=== PATIENT | male | born 1955 ===

== ENCOUNTER → 2021-06-17 11:43 | Outpatient (CLI) | payer MEDICARE, OTHER, SELFPAY ==
[2021-06-17 19:40] LABS: Add Manual Diff / Slide Review NO; Basophils Absolute Auto 100 /uL (0-100); Basophils Percent Auto 0.8 % (0-2); Eosinophils Absolute Auto 200 /uL (0-450); Eosinophils Percent Auto 2.9 % (2-4); Hemoglobin 12.7 g/dL (13.5-17.5); Lymphocytes Absolute Auto 1200 /uL (1100-4500); Lymphocytes Percent Auto 19.3 % (25-40); Mean Corpuscular HGB Conc 33.6 % (30-36); Mean Corpuscular Hemoglobin 29.5 PG (26-34); Monocytes Absolute Auto 900 /uL (0-900); Monocytes Percent Auto 14.3 % (3-14); Neutrophils Absolute Auto 4000 /uL (1500-7000); Neutrophils Percent Auto 62.7 % (50-75); Platelet Count 186 X10^3/uL (150-400); Red Blood Cell Count 4.31 X10^6/uL (4.5-5.9); Red Cell Distribution Width 13.9 % (11.6-14.8); White Blood Cell Count 6.4 X10^3/uL (4.5-11.0)
== END ==
PROVIDERS: PCP Physician Assistant; Visit Provider Physician Assistant
DX: R10.31 Right lower quadrant pain (principal); M10.9 Gout, unspecified
CPT/HCPCS: 84550; 85025

== ENCOUNTER → 2022-05-25 13:22 | Outpatient (CLI) | payer MEDICARE, OTHER, SELFPAY ==
[2022-05-25 18:51] LABS: Hematocrit 41.1 % (41-53); Hemoglobin 13.8 g/dL (13.5-17.5); Mean Corpuscular HGB Conc 33.7 % (30-36); Mean Corpuscular Hemoglobin 29.8 PG (26-34); Mean Corpuscular Volume 88.6 fL (80-100); Platelet Count 186 X10^3/uL (150-400); Red Blood Cell Count 4.64 X10^6/uL (4.5-5.9); Red Cell Distribution Width 13.8 % (11.6-14.8); White Blood Cell Count 4.8 X10^3/uL (4.5-11.0)
[2022-05-25 18:52] LABS: HEMOLYSIS < 15 (0-50); Iron 113 ug/dL (49-181)
[2022-05-25 18:58] LABS: C-Reactive Protein Quant < 0.5 mg/dL (<1.0)
[2022-05-25 19:05] LABS: Percent Iron Saturation 36 % (20-50); Total Iron Binding Capacity 313 ug/dL (261-462); Transferrin 261 mg/dL (206-381)
[2022-05-25 19:28] LABS: Ferritin 85 ng/mL (18-464)
[2022-05-25 19:43] LABS: Erythrocyte Sedimentation Rate 2 MM/HR (0-15)
== END ==
PROVIDERS: Physician Assistant; PCP Family Medicine; Visit Provider Physician Assistant Medical
DX: M10.9 Gout, unspecified (principal); D31.32 Benign neoplasm of left choroid; M54.81 Occipital neuralgia; M79.2 Neuralgia and neuritis, unspecified; D64.9 Anemia, unspecified
CPT/HCPCS: 82728; 83540; 83550; 85027; 85651; 86140

== ENCOUNTER → 2022-07-26 09:40 | Outpatient (CLI) | payer MEDICARE, OTHER, SELFPAY ==
[2022-07-26 20:06] LABS: Blood Urea Nitrogen 17 mg/dL (9-20); Calcium 9.4 mg/dL (8.4-10.2); Carbon Dioxide 33 mmol/L (22-32); Chloride 97 mmol/L (98-107); Cholesterol 243 mg/dL (140-199); Estimated Glomerular Filt Rate > 60 mL/min (>60); Glucose 137 mg/dL (80-110); HDL Cholesterol 87 mg/dL (40-60); HEMOLYSIS < 15 (0-50); LDL Cholesterol Calculated 142 mg/dL (<100); Potassium 4.5 mmol/L (3.4-5.1); Sodium 137 mmol/L (137-145); Triglycerides 71 mg/dL (35-150); Uric Acid 6.3 mg/dL (3.5-8.5)
[2022-07-26 20:35] LABS: Prostate Specific Antigen Scrn 0.955 ng/mL (0.1-4.0)
[2022-07-26 20:54] LABS: Vitamin B12 427 pg/mL (239-931)
[2022-07-26 20:55] LABS: Hep C Virus Ab w/Reflex Quant NEGATIVE s/c (NEGATIVE)
== END ==
PROVIDERS: PCP Family Medicine; Visit Provider Family Medicine
DX: Z13.6 Encounter for screening for cardiovascular disorders (principal); Z12.5 Encounter for screening for malignant neoplasm of prostate; D64.9 Anemia, unspecified; M10.9 Gout, unspecified; M79.2 Neuralgia and neuritis, unspecified; Z11.59 Encounter for screening for other viral diseases; Z12.11 Encounter for screening for malignant neoplasm of colon; Z13.1 Encounter for screening for diabetes mellitus
CPT/HCPCS: 80048; 80061; 82607; 84550; 86803; G0103

== ENCOUNTER → 2022-08-11 14:10 | Outpatient (CLI) | payer MEDICARE, OTHER, SELFPAY | PROVIDERS: PCP Family Medicine; Visit Provider Family Medicine | DX: R73.03 Prediabetes (principal) | CPT/HCPCS: 83036 ==

== ENCOUNTER → 2022-12-30 13:59 | Outpatient (CLI) | payer MEDICARE, OTHER, SELFPAY ==
[2022-12-31 22:07] LABS: x Labcorp Estim. Avg Glu (eAG) 128 mg/dL (.); x Labcorp Hemoglobin A1c 6.1 % (4.8-5.6)
== END ==
PROVIDERS: PCP Family Medicine; Visit Provider Family Medicine
DX: R73.03 Prediabetes (principal)
CPT/HCPCS: 83036

== ENCOUNTER → 2023-05-31 08:36 | Outpatient (CLI) | payer MEDICARE, OTHER, SELFPAY ==
[2023-05-31 19:26] LABS: Hemoglobin A1C% w Est Avg Glu 6.6 % (4.0-6.0)
[2023-05-31 19:36] LABS: Alanine Aminotransferase 34 IU/L (<50); Albumin 4.2 g/dL (3.5-5.0); Albumin Globulin Ratio 1.6 (1.0-2.8); Alkaline Phosphatase 45 U/L (38-126); Aspartate Aminotransferase 34 IU/L (17-59); BUN Creatinine Ratio 22.4 (6-22); Bilirubin Total 0.8 mg/dL (0.2-1.3); Blood Urea Nitrogen 17 mg/dL (9-20); Calcium 9.5 mg/dL (8.4-10.2); Carbon Dioxide 32 mmol/L (22-32); Chloride 99 mmol/L (98-107); Cholesterol 163 mg/dL (140-199); Estimated Glomerular Filt Rate > 60 mL/min (>60); Globulin 2.7 g/dL (1.7-4.1); Glucose 145 mg/dL (80-110); HDL Cholesterol 80 mg/dL (40-60); HEMOLYSIS < 15 (0-50); LDL Cholesterol Calculated 73 mg/dL (<100); Potassium 4.5 mmol/L (3.4-5.1); Sodium 137 mmol/L (137-145); Total Protein 6.9 g/dL (6.3-8.2); Triglycerides 51 mg/dL (35-150)
[2023-05-31 19:44] LABS: Add Manual Diff / Slide Review NO; Basophils Absolute Auto 0 /uL (0-100); Basophils Percent Auto 0.9 % (0-2); Eosinophils Absolute Auto 200 /uL (0-450); Eosinophils Percent Auto 2.9 % (2-4); Hematocrit 40.4 % (41-53); Hemoglobin 13.5 g/dL (13.5-17.5); Lymphocytes Absolute Auto 1100 /uL (1100-4500); Mean Corpuscular HGB Conc 33.5 % (30-36); Mean Corpuscular Hemoglobin 29.7 PG (26-34); Mean Corpuscular Volume 88.6 fL (80-100); Monocytes Absolute Auto 600 /uL (0-900); Monocytes Percent Auto 12.4 % (3-14); Neutrophils Absolute Auto 3300 /uL (1500-7000); Neutrophils Percent Auto 62.8 % (50-75); Platelet Count 167 X10^3/uL (150-400); Red Blood Cell Count 4.56 X10^6/uL (4.5-5.9); Red Cell Distribution Width 14.5 % (11.6-14.8); White Blood Cell Count 5.2 X10^3/uL (4.5-11.0)
[2023-05-31 19:59] LABS: Prostate Specific Antigen Scrn 0.942 ng/mL (0.1-4.0)
[2023-05-31 20:26] LABS: Creatinine Urine Random 65.5 mg/dL
[2023-05-31 20:31] LABS: Microalbumi Creatinin Ratio Ur 12.2 ug/mg CR (<30); Microalbumin Urine Random 0.8 mg/dL (0-1.6)
== END ==
PROVIDERS: PCP Family Medicine; Visit Provider Family Medicine
DX: Z12.5 Encounter for screening for malignant neoplasm of prostate (principal); E78.2 Mixed hyperlipidemia; I10 Essential (primary) hypertension; R73.03 Prediabetes; M10.9 Gout, unspecified; N52.9 Male erectile dysfunction, unspecified
CPT/HCPCS: 80053; 80061; 82043; 82570; 83036; 85025; G0103

== ENCOUNTER → 2024-04-02 08:16 | Outpatient (CLI) | payer MEDICARE, OTHER, SELFPAY ==
[2024-04-02 18:55] LABS: Cholesterol 175 mg/dL (140-199); Glucose 147 mg/dL (80-110); HDL Cholesterol 88 mg/dL (40-60); LDL Cholesterol Calculated 79 mg/dL (<100); Triglycerides 39 mg/dL (35-150)
[2024-04-02 19:26] LABS: Prostate Specific Antigen Scrn 0.897 ng/mL (0.1-4.0)
[2024-04-02 19:40] LABS: Hep C Virus Ab w/Reflex Quant NEGATIVE s/c (NEGATIVE)
== END ==
PROVIDERS: PCP Family Medicine; Referring Provider Family Medicine; Visit Provider Family Medicine
DX: Z13.1 Encounter for screening for diabetes mellitus (principal); E78.2 Mixed hyperlipidemia; Z12.5 Encounter for screening for malignant neoplasm of prostate; Z12.11 Encounter for screening for malignant neoplasm of colon; Z11.59 Encounter for screening for other viral diseases; Z13.220 Encounter for screening for lipoid disorders
CPT/HCPCS: 80061; 82947; 86803; G0103

== ENCOUNTER → 2024-04-09 13:24 | Outpatient (CLI) | payer MEDICARE, OTHER, SELFPAY ==
[2024-04-09 19:37] LABS: Hemoglobin A1C% w Est Avg Glu 6.4 % (4.0-6.0)
== END ==
PROVIDERS: PCP Family Medicine; Visit Provider Family Medicine
DX: E11.9 Type 2 diabetes mellitus without complications (principal)
CPT/HCPCS: 83036

== ENCOUNTER → 2024-08-29 10:31 | Outpatient (CLI) | payer MEDICARE, OTHER, SELFPAY ==
[2024-08-29 19:29] LABS: Add Manual Diff / Slide Review NO; Basophils Absolute Auto 100 /uL (0-100); Basophils Percent Auto 1.3 % (0-2); Eosinophils Absolute Auto 100 /uL (0-450); Eosinophils Percent Auto 2.9 % (2-4); Hematocrit 40.7 % (41-53); Hemoglobin 13.7 g/dL (13.5-17.5); Lymphocytes Absolute Auto 1400 /uL (1100-4500); Mean Corpuscular HGB Conc 33.7 % (30-36); Mean Corpuscular Hemoglobin 29.4 PG (26-34); Mean Corpuscular Volume 87.3 fL (80-100); Monocytes Absolute Auto 600 /uL (0-900); Monocytes Percent Auto 12.8 % (3-14); Neutrophils Absolute Auto 2600 /uL (1500-7000); Platelet Count 185 X10^3/uL (150-400); Red Blood Cell Count 4.66 X10^6/uL (4.5-5.9); Red Cell Distribution Width 13.9 % (11.6-14.8); White Blood Cell Count 4.9 X10^3/uL (4.5-11.0)
[2024-08-29 19:41] LABS: BUN Creatinine Ratio 27.5 (6-22); Blood Urea Nitrogen 19 mg/dL (9-20); Calcium 9.3 mg/dL (8.4-10.2); Carbon Dioxide 29 mmol/L (22-32); Chloride 97 mmol/L (98-107); Cholesterol 133 mg/dL (140-199); Estimated Glomerular Filt Rate > 60 mL/min (>60); Glucose 256 mg/dL (80-110); HDL Cholesterol 78 mg/dL (40-60); HEMOLYSIS < 15 (0-50); LDL Cholesterol Calculated 42 mg/dL (<100); Sodium 135 mmol/L (137-145); Triglycerides 66 mg/dL (35-150)
[2024-08-29 19:42] LABS: Hemoglobin A1C% w Est Avg Glu 9.7 % (4.0-6.0)
[2024-08-29 19:53] LABS: Potassium 4.7 mmol/L (3.4-5.1)
[2024-08-29 20:08] LABS: Prostate Specific Antigen Scrn 0.648 ng/mL (0.1-4.0)
[2024-08-29 20:29] LABS: Creatinine Urine Random 67.53 mg/dL
[2024-08-29 20:33] LABS: Microalbumin Urine Random 6.1 mg/dL (0-1.6)
== END ==
PROVIDERS: PCP Family Medicine; Visit Provider Family Medicine
DX: Z12.5 Encounter for screening for malignant neoplasm of prostate (principal); E11.9 Type 2 diabetes mellitus without complications; I10 Essential (primary) hypertension; E78.2 Mixed hyperlipidemia; M10.9 Gout, unspecified
CPT/HCPCS: 80048; 80061; 82043; 82570; 83036; 85025; G0103

== ENCOUNTER → 2024-10-01 11:01 | Outpatient (CLI) | payer MEDICARE, OTHER, SELFPAY ==
[2024-10-01 18:43] LABS: Add Manual Diff / Slide Review NO; Basophils Absolute Auto 0 /uL (0-100); Basophils Percent Auto 0.3 % (0-2); Eosinophils Absolute Auto 100 /uL (0-450); Eosinophils Percent Auto 1.5 % (2-4); Hematocrit 41.6 % (41-53); Hemoglobin 13.9 g/dL (13.5-17.5); Lymphocytes Absolute Auto 1300 /uL (1100-4500); Lymphocytes Percent Auto 16.6 % (25-40); Mean Corpuscular HGB Conc 33.4 % (30-36); Mean Corpuscular Hemoglobin 29.4 PG (26-34); Monocytes Absolute Auto 700 /uL (0-900); Monocytes Percent Auto 9.3 % (3-14); Neutrophils Absolute Auto 5500 /uL (1500-7000); Neutrophils Percent Auto 72.3 % (50-75); Platelet Count 180 X10^3/uL (150-400); Red Blood Cell Count 4.73 X10^6/uL (4.5-5.9); Red Cell Distribution Width 13.9 % (11.6-14.8); White Blood Cell Count 7.7 X10^3/uL (4.5-11.0)
[2024-10-01 18:46] LABS: BUN Creatinine Ratio 30.4 (6-22); Blood Urea Nitrogen 21 mg/dL (9-20); Calcium 9.5 mg/dL (8.4-10.2); Carbon Dioxide 30 mmol/L (22-32); Chloride 96 mmol/L (98-107); Estimated Glomerular Filt Rate > 60 mL/min (>60); Glucose 289 mg/dL (80-110); HEMOLYSIS < 15 (0-50); Potassium 4.4 mmol/L (3.4-5.1); Sodium 133 mmol/L (137-145)
[2024-10-01 19:17] LABS: TSH w/ Reflex to FT4 0.62 uIU/mL (0.47-4.68)
[2024-10-05 08:36] LABS: Antipancreatic Islet Cells Negative (Neg:<1:1)
== END ==
PROVIDERS: PCP Family Medicine; Visit Provider Family Medicine
DX: E13.9 Other specified diabetes mellitus without complications (principal); I10 Essential (primary) hypertension
CPT/HCPCS: 80048; 84443; 85025; 86341

== ENCOUNTER → 2024-10-05 09:25 | Outpatient (CLI) | payer MEDICARE, OTHER, SELFPAY ==
[2024-10-07 07:40] LABS: C Peptide 0.8 ng/mL (1.1-4.4)
== END ==
PROVIDERS: PCP Family Medicine; Visit Provider Family Medicine
DX: E13.9 Other specified diabetes mellitus without complications (principal); I10 Essential (primary) hypertension
CPT/HCPCS: 84681

== ENCOUNTER → 2024-11-12 09:24 | Outpatient (CLI) | payer MEDICARE, OTHER, SELFPAY ==
[2024-11-12 19:44] LABS: BUN Creatinine Ratio 24.4 (6-22); Blood Urea Nitrogen 20 mg/dL (9-20); Calcium 9.3 mg/dL (8.4-10.2); Carbon Dioxide 31 mmol/L (22-32); Chloride 99 mmol/L (98-107); Cholesterol 157 mg/dL (140-199); Estimated Glomerular Filt Rate > 60 mL/min (>60); Glucose 174 mg/dL (70-99); HDL Cholesterol 95 mg/dL (40-60); HEMOLYSIS < 15 (0-50); LDL Cholesterol Calculated 54 mg/dL (<100); Potassium 4.8 mmol/L (3.4-5.1); Sodium 135 mmol/L (137-145); Triglycerides 40 mg/dL (35-150)
[2024-11-12 19:50] LABS: Hemoglobin A1C% w Est Avg Glu 8.1 % (4.0-6.0)
[2024-11-12 21:14] LABS: Creatinine Urine Random 16.62 mg/dL
[2024-11-12 21:24] LABS: Microalbumin Urine Random < 0.6 mg/dL (0-1.6)
== END ==
PROVIDERS: PCP Family Medicine; Visit Provider Family Medicine
DX: E13.9 Other specified diabetes mellitus without complications (principal); E78.2 Mixed hyperlipidemia; I10 Essential (primary) hypertension
CPT/HCPCS: 80048; 80061; 82043; 82570; 83036

== ENCOUNTER → 2024-11-20 09:26 | Outpatient (CLI) | payer MEDICARE, OTHER, SELFPAY ==
[2024-11-20 10:04] LABS: Estimated Glomerular Filt Rate > 60 mL/min (>60)
--- NOTE | 2024-11-20 10:40 | DI.CT.S_ITS ---
PROCEDURE: CT ABDOMEN PELVIS W CON INDICATIONS: NEW ONSET DIABETES. EVAL PANCREAS TECHNIQUE: After the administration of intravenous contrast, axial sections acquired from the lung bases to the pubic symphysis. Coronal and sagittal reformats were performed. For radiation dose reduction, the following was used: automated exposure control, adjustment of mA and/or kV according to patient size. COMPARISON: None. FINDINGS: Image quality: Diagnostic. Lower Chest: No significant findings. ABDOMEN: Liver: No solid mass. Gallbladder: No radiopaque gallstones or wall thickening. Biliary ducts: No biliary dilation. Pancreas: No ductal dilation. Spleen: Subcentimeter hypodense lesion, statistically most likely cyst or hemangioma.44 Adrenal Glands: No adrenal nodules. Kidneys and Ureters: No hydronephrosis. No solid mass. No complex renal cystic lesion which requires follow up. Stomach and Bowel: Normal colonic caliber, without significant wall thickening. Confluent soft tissue density in the proximal ascending colon, appears to have some internal gas and hyperdense foci. Peritoneum: No abnormal intraperitoneal fluid. No free air. Ventral Wall: No significant ventral hernia. Abdominal Nodes: No retroperitoneal or mesenteric adenopathy by size criteria. Vessels: Aorta and inferior vena cava are normal in size. PELVIS: Pelvic Organs: Unremarkable. Bladder: No bladder wall thickening, accounting for underdistention. Pelvic Nodes: No enlarged lymph nodes. Miscellaneous: No inguinal hernias are seen. Bones: No aggressive osseous abnormality. IMPRESSION: 1. Unremarkable appearance of the pancreas, without volume loss or other signs of chronic pancreatitis. 2. Confluent soft tissue density in the proximal ascending colon, probably due to a stool ball. However, please correlate with the status of colonic screening. Dictated by: Ulises Hilario M.D. on 11/20/2024 at 13:49 Approved by: Ulises Hilario M.D. on 11/20/2024 at 13:54
== END ==
LOC: CT 09:27
PROVIDERS: Radiology Diagnostic Radiology; PCP Family Medicine; Referring Provider Student in an Organized Health Care Education/Training Program; Visit Provider Student in an Organized Health Care Education/Training Program
DX: E13.8 Other specified diabetes mellitus with unspecified complications (principal)
CPT/HCPCS: 36415; 74177; 82565; Q9967